=== PATIENT | female | born 1980 | race Caucasian/White ===

== ENCOUNTER → 2019-11-26 | Outpatient (CLI) | payer OTHER ==
--- NOTE | 2019-11-26 10:41 | RAD ---
Examination: CT right shoulder without contrast HISTORY: History of injury, scapular fracture COMPARISON: None available TECHNIQUE: Axial CT images of the right shoulder were performed without contrast. Coronal and sagittal reformats are performed Exposure: One or more of the following individualized dose reduction techniques were utilized for this examination: 1. Automated exposure control 2. Adjustment of the mA and/or kV according to patient size 3. Use of iterative reconstruction technique. Findings FINDINGS: The humerus head is within the glenoid. There is no obvious acute fracture identified in the scapular region. The acromion is type II. There is a 4 mm nodule identified in the right apical lung. IMPRESSION: 1. No evidence of acute fracture identified in right scapular region. 2. 4 mm nodule right apical lung. Recommend follow-up per Fleischner Society guidelines with a follow-up CT in 6-12 months. Electronically signed by: Raymundo Hayes MD (11/26/2019 10:38 AM) [id number]
== END | disposition home or self-care (01) ==
LOC: CT 09:22
PROVIDERS: ATTEND Family Medicine
DX: M25.511 Pain in right shoulder (principal); R91.1 Solitary pulmonary nodule
CPT/HCPCS: 73200